=== PATIENT | female | born 1985 | race Caucasian/White ===

== ENCOUNTER 2019-07-26 12:59 | Emergency (ER) | payer MEDICAID ==
[2019-07-26] MEDS ORDERED: LORazepam 2 MG/ML SDV ONE ×2 (13:14→13:40)
[2019-07-26] MEDS ORDERED: LORazepam 2 MG/ML SDV IVPUSH ONE ×3 (13:15→19:20)
[2019-07-26] MEDS ORDERED: Sodium Chloride 0.9% 10 ML Syringe FLUSH PRN ×2 (13:15→19:30)
[2019-07-26] MEDS ORDERED: Sodium Chloride 0.9% 1,000 ML IV SCH (13:20)
[2019-07-26] MEDS ORDERED: Pantoprazole 40 MG Vial ONE (13:22)
[2019-07-26 13:31] LABS: CHLORIDE,CL 105 mmol/L (98-107); SODIUM,NA 143 mmol/L (136-145)
--- NOTE | 2019-07-26 13:55 | EDM.PDOC ---
ED HPI GENERAL MEDICAL PROBLEM - General Chief Complaint: Drug or Alcohol Abuse Stated Complaint: overdose Time Seen by Provider: 07/26/19 13:00 Source of Information: Reports: Patient, EMS History Limitations: Reports: No Limitations, Altered Mental Status, Combative/ Threatening - History of Present Illness INITIAL COMMENTS - FREE TEXT/NARRATIVE: Patient is a 34-year-old female who was brought in by [facility] secondary to amphetamine overdose patient presented to the clinic in endocrine where she was very anxious at that time patient stated that she had snorted a line of amphetamines and was feeling very agitated some back discomfort and crawling off her skin patient was very paranoid 911 was called and patient was transferred to [facility] ER while transferring to [place] patient was tachycardic in the 140s and very agitated and paranoid of all EMS and medical personnel in the ambulance and in the hospital patient was calm down and allowed us to partake in her care IV was started Ativan 1 mg was given which patient responded during her stay in the ER patient was agitated and paranoid that we had performed surgery on her. Onset: Sudden Duration: Hour(s):, Recurring Location: Reports: Chest, Generalized Quality: Reports: Ache (Chest pain) Improves with: Reports: Medication Worsens with: Reports: None, Movement Context: Reports: Other (Overdose) - Related Data Allergies Allergy/AdvReac Type Severity Reaction Status Date / Time Penicillins Allergy Hives Verified 07/26/19 13:39 Home Meds: Home Meds . [No Known Home Meds] 07/26/19 [History] ED ROS GENERAL - Review of Systems Review Of Systems: See Below Constitutional: Reports: No Symptoms HEENT: Reports: No Symptoms Respiratory: Reports: Other (Chest pain in the back) Cardiovascular: Reports: No Symptoms Endocrine: Reports: No Symptoms : Reports: No Symptoms Musculoskeletal: Reports: Arm Pain Skin: Reports: No Symptoms Neurological: Reports: No Symptoms Psychiatric: Reports: Agitation, Anxiety Hematologic/Lymphatic: Reports: No Symptoms Immunologic: Reports: No Symptoms ED EXAM, GENERAL - Physical Exam Exam: See Below Exam Limited By: Altered Mental Status (Paregoric) General Appearance: Alert, WD/WN, Moderate Distress Ears: Normal External Exam, Normal Canal, Hearing Grossly Normal, Normal TMs Nose: Normal Inspection, Normal Mucosa, No Blood Throat/Mouth: Normal Inspection, Normal Lips, Normal Teeth, Normal Gums, Normal Oropharynx, Normal Voice, No Airway Compromise Head: Atraumatic, Normocephalic Neck: Normal Inspection, Supple, Non-Tender, Full Range of Motion Respiratory/Chest: No Respiratory Distress, Lungs Clear, Normal Breath Sounds, No Accessory Muscle Use, Chest Non-Tender Cardiovascular: Regular Rate, Rhythm, No JVD, No Murmur, No Rub GI/Abdominal: Normal Bowel Sounds, Soft, Non-Tender, No Organomegaly, No Distention, No Abnormal Bruit, No Mass (Female) Exam: Deferred Rectal (Female) Exam: Deferred Back Exam: Normal Inspection, Full Range of Motion, NT Extremities: Normal Inspection, Normal Range of Motion, Non-Tender, Normal Capillary Refill, No Pedal Edema Neurological: Alert, CN II-XII Intact Psychiatric: Anxious, Tearful Skin Exam: Warm, Dry, Intact, Normal Color, No Rash Lymphatic: No Adenopathy Course - Orders/Labs/Meds Orders: Active Orders 24 hr Category Date Time Status Chest 1V Frontal [CR] Routine Exams 07/26/19 13:45 Taken DRUG SCREEN, URINE [URCHEM] Stat Lab 07/26/19 19:10 Received HCG QUALITATIVE,URINE [URCHEM] Stat Lab 07/26/19 19:10 Received UA W/MICROSCOPIC [URIN] Stat Lab 07/26/19 19:10 Received Labs: Laboratory Tests 07/26/19 07/26/19 Range/Units 13:10 13:10 WBC 10.0 (4.0-10.2) K/uL RBC 4.76 (3.77-5.09) M/uL Hgb 15.4 (11.7-15.5) g/dL Hct 45.9 (34.0-46.0) % MCV 96.4 (84.0-98.0) fL MCH 32.4 (28.2-33.3) pg MCHC 33.6 (31.7-36.0) g/dL RDW 13.2 (11.2-14.1) % Plt Count 311 (150-350) K/uL Neut % (Auto) 68.6 (45.0-80.0) % Lymph % (Auto) 22.7 (10.0-50.0) % [place] % (Auto) 7.1 (2.0-14.0) % Eos % (Auto) 1.0 (0.0-5.0) % Baso % (Auto) 0.6 (0.0-2.0) % Neut # (Auto) 6.84 (1.40-7.00) K/uL Lymph # (Auto) 2.27 (0.50-3.50) K/uL [place] # (Auto) 0.71 (0.00-1.00) K/uL Eos # (Auto) 0.10 (0.00-0.50) K/uL Baso # (Auto) 0.06 (0.00-0.20) K/uL Sodium 143 (136-145) mmol/L Potassium 4.1 (3.5-5.1) mmol/L Chloride 105 (98-107) mmol/L Carbon Dioxide 26.3 (21.0-32.0) mmol/L BUN 13 (7-18) mg/dL Creatinine 0.67 (0.51-1.17) mg/dL Est Cr Clr Drug Dosing TNP Estimated GFR (MDRD) > 60 mL/min Glucose 112 H (74-106) mg/dL Calcium 10.0 (8.5-10.1) mg/dL Total Bilirubin 0.3 (0.2-1.0) mg/dL AST 24 (15-37) U/L ALT 34 (12-78) U/L Alkaline Phosphatase 82 (46-116) IU/L Troponin I 0.000 (0.000-0.056) ng/mL Total Protein 8.0 (6.4-8.2) g/dL Albumin 4.5 (3.4-5.0) g/dL Meds: Medications Discontinued Medications Generic Name Dose Route Start Last Admin Trade Name Freq PRN Reason Stop Dose Admin Lorazepam Confirm 07/26/19 13:14 07/26/19 15:07 Ativan Administered 07/26/19 13:15 Not Given Dose 2 mg .ROUTE .STK-MED ONE Lorazepam Confirm 07/26/19 13:40 07/26/19 15:07 Ativan Administered 07/26/19 13:41 Not Given Dose 2 mg .ROUTE .STK-MED ONE Lorazepam 1 mg 07/26/19 19:20 Ativan IVPUSH 07/26/19 19:21 ONETIME ONE Metoprolol Succinate 25 mg 07/26/19 18:40 Toprol Xl PO 07/26/19 18:41 ONETIME ONE Metoprolol Tartrate Confirm 07/26/19 14:23 07/26/19 15:07 Lopressor Administered 07/26/19 14:24 Not Given Dose 5 mg .ROUTE .STK-MED ONE Pantoprazole Sodium Confirm 07/26/19 13:22 07/26/19 15:07 Protonix Iv Administered 07/26/19 13:23 Not Given Dose 40 mg .ROUTE .STK-MED ONE Departure - Departure Time of Disposition: 19:28 Disposition: DC/Tfer to Acute Hospital 02 Condition: Fair Clinical Impression: Paranoia (psychosis) Amphetamine overdose Qualifiers: Encounter type: initial encounter Injury intent: accidental or unintentional Qualified Code(s): T43.621A - Poisoning by amphetamines, accidental ( unintentional), initial encounter - Discharge Information *PRESCRIPTION DRUG MONITORING PROGRAM REVIEWED*: No *COPY OF PRESCRIPTION DRUG MONITORING REPORT IN PATIENT DARIEL: No Referrals: PCP,Unknown [Primary Care Provider] - Care Plan Goals: Patient was admitted to the ER treated by supportive care but patient slept for a few hours when she woke up patient was paranoid stating that she wanted to and that we were trying to kill her therefore we contacted [facility] for transfer and patient agreed of transfer - My Orders Last 24 Hours: My Active Orders 07/26/19 13:45 Chest 1V Frontal [CR] Routine 07/26/19 19:10 DRUG SCREEN, URINE [URCHEM] Stat HCG QUALITATIVE,URINE [URCHEM] Stat UA W/MICROSCOPIC [URIN] Stat - Assessment/Plan Last 24 Hours: My Active Orders 07/26/19 13:45 Chest 1V Frontal [CR] Routine 07/26/19 19:10 DRUG SCREEN, URINE [URCHEM] Stat HCG QUALITATIVE,URINE [URCHEM] Stat UA W/MICROSCOPIC [URIN] Stat
[2019-07-26] MEDS ORDERED: Metoprolol Tartrate 5 MG/5 ML SDV ONE (14:23)
[2019-07-26] MEDS ORDERED: Metoprolol Succinate 25 MG Tab.ER PO ONE (18:40)
[2019-07-26 19:33] LABS: BARBITURATE SCREEN,URINE NEGATIVE (NEGATIVE); BENZODIAZEPINES SCREEN,URINE POSITIVE (NEGATIVE); TCA SCREEN,URINE NEGATIVE (NEGATIVE); THC SCREEN,URINE 50 NG/ML POSITIVE (NEGATIVE)
== END 2019-07-26 20:30 ==
LOC: LL.ED 12:59
DX: T43.621A Poisoning by amphetamines, accidental (unintentional), initial encounter (principal); F22 Delusional disorders; Z88.0 Allergy status to penicillin
CPT/HCPCS: 36415; 71045; 80053; 80305-QW; 81001; 81025; 84484; 85025; 93005; 96361; 96374; 96375; 96376; 99285-25; A9270-GY; C9113; J2060; J3490; J7030